=== PATIENT | female | born 1985 | race Caucasian/White ===

== ENCOUNTER → 2018-05-03 05:26 | Day surgery (SDC) | payer BC ==
--- NOTE | 2018-04-13 08:01 | HP ---
PREOPERATIVE HISTORY AND PHYSICAL: DATE OF SURGERY/ADMISSION: 05/03/18 DATE OF OFFICE VISIT: 04/11/18 ATTENDING SURGEON: Dr. Aidan Colunga.* (DICTATED BY DIANNE MANDUJANO) PROCEDURE: Left open scapular bursectomy and excision. CHIEF COMPLAINT: Left shoulder. HISTORY OF PRESENT ILLNESS: Jackie is a 32-year-old female who presents to the clinic for left scapular bursitis. She has failed conservative measures to include extensive physical therapy and has therefore agreed to undergo left open scapular bursectomy and excision with Dr. Colunga on 05/03/18. PAST MEDICAL HISTORY: Asthma, depression. PAST SURGICAL HISTORY: [place] teeth removal, sinus surgery. The patient denies prior complications with anesthesia. MEDICATIONS: 1. Flonase 50 mcg/act 2 sprays each nostril once daily. 2. Claritin 10 mg once daily. 3. Ventolin HFA 108/90 one to two puffs every 4 to 6 hours. 4. Singulair 10 mg 1 by mouth daily. 5. Lexapro 10 mg 1 by mouth daily. 6. Breo Ellipta 200/25 mcg per inhalation one puff once a day. 7. Multivitamin per her 1 daily. ALLERGIES: POLYTRIM, NSAIDs, AUGMENTIN. FAMILY HISTORY: Positive for diabetes and throat cancer. SOCIAL HISTORY: She lives alone. She is a researcher. She denies tobacco use. She reports occasional alcohol consumption. She exercises regularly. She is right hand dominant. REVIEW OF SYSTEMS: A 14-point review of systems was reviewed with the patient. Positive for current complaint, otherwise negative. Denies fever, chills, chest pain, shortness of breath, history of DVT or PE, history of bleeding disorders. PHYSICAL EXAMINATION GENERAL: A 32-year-old well-developed, well-nourished female, in no acute distress. VITAL SIGNS: Height 68, weight 148, pulse 78, blood pressure 100/68, respiratory rate 18, BMI 22.5. HEENT: Normocephalic, atraumatic. PERRLA. Throat clear. NECK: Supple. PULMONARY: Lungs clear to auscultation bilaterally. No wheezing, rhonchi, or rales. CARDIO: Regular rate and rhythm. S1, S2. No murmurs, gallops, or rubs. No edema. ABDOMEN: Positive bowel sounds. Soft, nontender. MUSCULOSKELETAL: Left upper extremity: Skin is intact. No warmth or erythema. Full, pain-free range of motion. +5/5 strength. Tenderness to palpation on the medial scapular border and some crepitus with scapular dyskinesia. +2 radial pulse. Sensation intact to light touch distally. NEURO: Alert and oriented x3. Cranial nerves grossly intact. STUDIES: MRI of the left shoulder revealed no obvious scapular fractures or masses. IMPRESSION: Left scapular bursitis. PLAN: The patient is scheduled to undergo a left open scapular bursectomy and excision with Dr. Colunga on 05/03/18. She will follow up in 10 to 14 days postop for followup and suture removal. Percocet will be e-script for postop pain management. DIANNE MANDUJANO [id number]/[facility] #: [id number] KANDY
[~2018-05-03 05:26] MED LIST: Atracurium* 10 MG/ML 10 ML VIAL ONE; Buffered Lidocaine 0.9% SYRIN* 5 ML/SYR SYRINGE INTRADERM ONE; Bupivacaine 0.25% W/EPI* 10 ML SDV ONE; Dexamethasone IV* 4 MG/ML 1 ML (4 MG) IV SLOW PU ONE; Dexamethasone IV* 4 MG/ML 1 ML (4 MG) ONE; DiMENhydriNATE IV* 50 MG/ML VIAL IV PUSH PRN; EPHEDrine (Pressors)* 50 MG/ML VIAL ONE; Famotidine TAB* 20 MG ONE; Famotidine TAB* 20 MG PO ONE; Glycopyrrolate IV* 0.2 MG/ML 1 ML VIAL ONE; HYDROmorphone INJ1* 1 MG/ML SYRINGE IV PRN; Lactated Ringers 1000 ML Bag* 1,000 ML IV SCH; Levalbuterol 0.63MG/3ML NEB* UNIT OF USE INH ONE; Lidocaine 2% PF * 5 ML VIAL ONE; Midazolam* 1 MG/ML 5 ML VIAL (5 MG) ONE; Naloxone* 0.4 MG/ML 1 ML VIAL IV PRN; Ondansetron INJ* 2 MG/ML VIAL IV PRN; Ondansetron INJ* 2 MG/ML VIAL ONE; Propofol* 10 MG/ML 20 ML BTL ONE; Ropivacaine* 2 MG/ML 20 ML VIAL (0.2%) ONE; Scopolamine 1.5 mg* PATCH TRANSDERM PRN; ceFAZolin 2 GM PREMIX in ORs 2 GM/50 ML BAG IVPB ONE; fentaNYL* 50 MCG/ML 2 ML VIAL (100 MCG VIAL) ONE; fentaNYL* 50 MCG/ML 5 ML VIAL (250 MCG VIAL) ONE; oxyCODONE/Acetamin 5/325 MG* TAB ONE; oxyCODONE/Acetamin 5/325 MG* TAB PO PRN
[2018-05-03] MEDS: fentaNYL* 50 MCG/ML 2 ML VIAL (100 MCG VIAL) IV PRN ×3 (09:41→11:10)
[2018-05-03 13:01] VITALS: BP 109/82
--- NOTE | 2018-05-03 19:09 | OP ---
CC: PCP, Phyllis Walter MD * DATE OF SURGERY: 05/03/18 - [facility] DATE OF : 87 SURGEON: Aidan Colunga MD ON SITE COORDINATOR: DIANNE Rodríguez. An child development assistant was needed for the entirety of the case to help with positioning, retraction, and was utilized throughout all portions of the case. ANESTHESIOLOGIST: Dr. Salgado. ANESTHESIA: General. 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 OPERATIVE PROCEDURE: Left shoulder open excision of superomedial corner of the scapula with bursectomy. COMPLICATIONS: None. ESTIMATED BLOOD LOSS: Minimal, less than 25. INDICATIONS: Jackie Monteiro is a 32-year-old female who has had some chronic scapular pain for several years, but acutely got worse after an injury last spring. She has failed conservative management. She responded to an injection. She has an MRI findings with no abnormal mass. After extensive discussion and significant amount of therapy, she has elected to proceed with surgical treatment. Risks and benefits were discussed at length which included, but not limited to bleeding, infection, damage to nerves, vessels, surrounding structures, wound nonhealing, persistent pain, need for further surgery, scarring, stiffness, incomplete relief of symptoms, risks of anesthesia. She has elected to proceed with surgery. DESCRIPTION OF PROCEDURE: The patient was greeted in the preoperative area by attending surgeon. Correct extremity was marked and consent was confirmed. The patient was brought back to the operating suite, where she was placed in supine position. She was left in the supine position on the stretcher and intubated. She then underwent general anesthesia and endotracheal intubation, after which she was placed in the prone position and appropriately supported. The left shoulder was draped with the arm and wrist free using chlorhexidine soap, scrub, and alcohol wipe and a final prep with ChloraPrep. After appropriate surgical pause indicating site, side, procedure and administration of antibiotics, a 15 blade was used to make incision in line with the superomedial border of the scapula. Soft tissues were carefully dissected through the trapezial fascia, which was then incised transversely. The soft tissues were carefully elevated to expose the scapula. Based on preoperative imaging, the rhomboid and levator were carefully released in a good layer for later closure and the supraspinatus was also carefully released again with plan for a good closure. Once this was done, the bursa was exposed and palpated. There was no obvious loose debris, but the rasp was used to gently rough up the bone and the soft tissues. A bursectomy was done. There was no obvious debris or fluid that was present. At this point, the soft tissues were carefully released to expose the superomedial corner and a sagittal saw was then used to remove approximately about 2 cm of the superomedial corner. This was removed in its entirety. All loose bone and debris were removed. A rasp was used to rasp the tissues back. The wounds were then copiously irrigated with sterile saline. The rhomboid and supraspinatus tissue was closed. The fascia was closed with 0-Ethibond for good fascial closure. The wounds were irrigated again and the trapezial fascia was closed with 0 Vicryl in interrupted fashion. The wounds were irrigated again and the skin was closed in layers with 3-0 Monocryl. Sterile dressings were applied. The wound was injected with 0.2% ropivacaine. She was placed in a regular sling. She was awoken from anesthesia and transferred to PACU in stable condition. POSTOPERATIVE PLAN: She will be nonweightbearing. She will be getting passive and progress to active range of motion. She will be discharged on pain medication. DVT prophylaxis was considered, but deferred due to no previous personal or family history. I will see the patient back in about 2 weeks. [id number]/[facility] #: [id number] KANDY
== END | disposition home or self-care (01) ==
LOC: OR 05:26
PROVIDERS: ATTEND Orthopaedic Surgery
DX: M24.812 Other specific joint derangements of left shoulder, not elsewhere classified (principal); M75.52 Bursitis of left shoulder; J45.909 Unspecified asthma, uncomplicated
CPT/HCPCS: 81025; A9270-GY; J0690; J1100; J2250; J2405; J2704; J2795; J3010

== ENCOUNTER 2019-11-28 18:02 | Inpatient (IN) ==
[2019-11-28] MEDS ORDERED: Lactated Ringers 1000 ml BAG 1,000 ML IV ONE (19:17)
[2019-11-28 19:38] LABS: Urine Benzodiazepine Screen None Detected (None Detect); Urine Opiates Screen None Detected (None Detect)
[2019-11-28] MEDS ORDERED: Lactated Ringers 1000 ml BAG 1,000 ML IV SCH (20:00)
[2019-11-28] MEDS ORDERED: Albuterol HFA INHALER 8 gm MDI INH PRN (22:00)
[2019-11-29 03:51] LABS: ABS Eosinophils 0.2 10^3/ul (0-0.6); ABS Lymphocytes 2.2 10^3/ul (1.0-4.8); ABS Monocytes 0.5 10^3/ul (0-0.8); Eosinophil % 1.7 %; Hematocrit 40 % (35-47); Hemoglobin 14.2 g/dL (12.0-16.0); Lymphocyte % 22.1 %; Mean Corpuscular HGB Conc 35 g/dL (31-36); Mean Corpuscular Hemoglobin 32 pg (27-31); Mean Corpuscular Volume 91 fL (80-97); Mean Platelet Volume 8.3 fL (7.4-10.4); Platelet Count 188 10^3/uL (150-450); Red Blood Count 4.44 10^6 /uL (3.70-4.87); Red Cell Distribution Width 14 % (10-15); White Blood Count 9.9 10^3/uL (3.5-10.8)
[2019-11-29] MEDS ORDERED: Lidocaine 2% w/ EPI 1:200,000 MPF 20 ML SDV VIAL ONE (05:07)
[2019-11-29] MEDS ORDERED: Lactated Ringers 500 ml BAG 500 ML IV PRN (05:40)
[2019-11-29] MEDS ORDERED: OBEPIDURAL 250 ML EPIDURAL ONE (07:44)
[2019-11-29] MEDS: Mometasone/Formoter 200/5 MDI INH SCH ×2 (09:00→22:12)
[2019-11-29] MEDS ORDERED: Glycerin ADULT 2.4 gm SUPP PR PRN (18:52)
[2019-11-29] MEDS ORDERED: Witch Hazel PAD JAR TOPICAL PRN (18:52)
[2019-11-29] MEDS: Dibucaine 1% OINT 28.35 GM TUBE PR PRN (21:36)
[2019-11-30 08:37] LABS: ABS Basophils 0.1 10^3/ul (0-0.2); ABS Eosinophils 0.1 10^3/ul (0-0.6); ABS Lymphocytes 1.7 10^3/ul (1.0-4.8); ABS Monocytes 0.7 10^3/ul (0-0.8); ABS Neutrophils 9.2 10^3/ul (1.5-7.7); Eosinophil % 1.3 %; Hematocrit 31 % (35-47); Hemoglobin 10.9 g/dL (12.0-16.0); Lymphocyte % 14.8 %; Mean Corpuscular HGB Conc 35 g/dL (31-36); Mean Corpuscular Hemoglobin 32 pg (27-31); Mean Corpuscular Volume 92 fL (80-97); Platelet Count 149 10^3/uL (150-450); Red Blood Count 3.39 10^6 /uL (3.70-4.87); Red Cell Distribution Width 14 % (10-15); White Blood Count 11.8 10^3/uL (3.5-10.8)
[2019-11-30] MEDS: Mometasone/Formoter 200/5 MDI INH SCH ×2 (15:38→22:00)
[2019-12-01] MEDS: Dibucaine 1% OINT 28.35 GM TUBE PR PRN (07:11)
[2019-12-01 09:02] VITALS: BP 85/58
== END 2019-12-01 13:50 | disposition home or self-care (01) | DRG 807 ==
LOC: MCHOBOUT 18:02 → MCHOB 19:16
PROVIDERS: ADMIT Midwife; ATTEND Midwife

== ENCOUNTER 2021-06-25 03:18 | Inpatient (IN) ==
[2021-06-25] MEDS ORDERED: Buffered Lidocaine 1% SYRIN 1 ml INTRADERM ONE (05:05)
[2021-06-25] MEDS ORDERED: Lactated Ringers 1000 ml BAG 1,000 ML IV ONE ×2 (05:05→13:41)
[2021-06-25 05:51] LABS: ABS Eosinophils 0.3 10^3/ul (0-0.6); ABS Lymphocytes 1.6 10^3/ul (1.0-4.8); ABS Monocytes 0.5 10^3/ul (0-0.8); ABS Neutrophils 5.8 10^3/ul (1.5-7.7); Eosinophil % 3.5 %; Hematocrit 36 % (35-47); Hemoglobin 12.3 g/dL (12.0-16.0); Lymphocyte % 19.5 %; Mean Corpuscular HGB Conc 35 g/dL (31-36); Mean Corpuscular Hemoglobin 31 pg (27-31); Mean Corpuscular Volume 89 fL (80-97); Mean Platelet Volume 7.5 fL (7.4-10.4); Platelet Count 165 10^3/uL (150-450); Red Blood Count 3.99 10^6 /uL (3.70-4.87); Red Cell Distribution Width 15 % (10-15); White Blood Count 8.3 10^3/uL (3.5-10.8)
[2021-06-25 06:08] LABS: Urine Benzodiazepine Screen None Detected (None Detect); Urine Cannabinoids Screen None Detected (None Detect); Urine Opiates Screen None Detected (None Detect)
[2021-06-25] MEDS ORDERED: Oxytocin in LR 20 UNITS/1,000 ML BAG IVPB SCH ×2 (09:00→18:00)
[2021-06-25] MEDS: Lactated Ringers 1000 ml BAG 1,000 ML IV SCH ×2 (09:51→13:27)
[2021-06-25] MEDS ORDERED: OBEPIDURAL 250 ML EPIDURAL ONE (12:09)
[2021-06-25] MEDS ORDERED: Sodium Citrate/Citric Acid LIQ 15 ML UDC PO PRN (13:41)
[2021-06-25] MEDS ORDERED: Phenylephrine 40 mcg/mL 10mL (400mcg) SYRINGE IV PUSH PRN ×2 (13:41)
[2021-06-25] MEDS ORDERED: EPHEDrine (Pressors) 50 MG/ML VIAL IV PUSH PRN ×2 (13:41)
[2021-06-25] MEDS ORDERED: OBEPIDURAL 250 ML EPIDURAL SCH (14:00)
[2021-06-25] MEDS ORDERED: Lactated Ringers 1000 ml BAG 1,000 ML IV SCH ×2 (14:00→18:00)
[2021-06-25 15:06] LABS: Urine Appearance Clear; Urine Bilirubin Negative (Negative); Urine Blood Negative (Negative); Urine Color Amber; Urine Glucose 1+(50 mg/dL) (Negative); Urine Ketones Trace (Negative); Urine Nitrite Negative (Negative); Urine Protein Negative (Negative); Urine Specific Gravity 1.004 (1.002-1.030); Urine Urobilinogen Negative (Negative)
[2021-06-25] MEDS ORDERED: Witch Hazel PAD JAR TOPICAL PRN (17:06)
[2021-06-25] MEDS ORDERED: Glycerin ADULT 2.4 gm SUPP PR PRN (17:06)
[2021-06-25] MEDS ORDERED: Lidocaine 1% VIAL 10 MG/ML VIAL ONE (20:36)
[2021-06-26] MEDS: Dibucaine 1% OINT 28.35 GM TUBE PR PRN (00:16)
[2021-06-26] MEDS: PTO: Budesonide Flexhaler 180 (NF) 180 MCG/ACT MDI INH SCH ×2 (04:51→20:58)
[2021-06-26 06:23] LABS: ABS Basophils 0.1 10^3/ul (0-0.2); ABS Eosinophils 0.2 10^3/ul (0-0.6); ABS Lymphocytes 1.5 10^3/ul (1.0-4.8); ABS Monocytes 0.5 10^3/ul (0-0.8); ABS Neutrophils 7.8 10^3/ul (1.5-7.7); Hematocrit 36 % (35-47); Hemoglobin 12.2 g/dL (12.0-16.0); Mean Corpuscular HGB Conc 34 g/dL (31-36); Mean Corpuscular Hemoglobin 31 pg (27-31); Mean Corpuscular Volume 90 fL (80-97); Mean Platelet Volume 7.8 fL (7.4-10.4); Platelet Count 166 10^3/uL (150-450); Red Blood Count 3.95 10^6 /uL (3.70-4.87); Red Cell Distribution Width 15 % (10-15); White Blood Count 10.1 10^3/uL (3.5-10.8)
[2021-06-26] MEDS ORDERED: Varicella Virus Vaccine Live 0.5 ML VIAL SUBCUT ONE (09:00)
[2021-06-27] MEDS: Dibucaine 1% OINT 28.35 GM TUBE PR PRN (00:48)
[2021-06-27 08:25] VITALS: BP 125/53
== END 2021-06-27 14:00 | disposition home or self-care (01) | DRG 560 ==
LOC: MCHOBOUT 03:18 → MCHOB 04:02
PROVIDERS: ADMIT Midwife; ATTEND Midwife